=== PATIENT | female | born 1950 | race Two or more races ===

== ENCOUNTER 2020-12-06 18:51 | Emergency (ER) | payer MEDICARE, OTHER ==
[~2020-12-06] VITALS: Ht 165.1 cm; Wt 64.9 kg
[2020-12-06 20:05] LABS: Basophils # (auto) 0 10 ^3/uL (0-0.2); Basophils % (auto) 0.5 % (0.0-2.0); Eosinophils # (auto) 0 10 ^3/uL (0-0.8); Eosinophils % (auto) 0.5 % (0.0-7.0); Hematocrit 37.9 % (36.0-46.0); Hemoglobin 13.2 g/dL (12.2-16.2); Lymphocytes # (auto) 1.7 10 ^3/uL (0.4-5.4); Lymphocytes % (auto) 22.9 % (10.0-50.0); Mean Corpuscular Hemoglobin 31.2 pg (28.0-32.0); Mean Corpuscular Volume 89.4 fL (80.0-100.0); Monocytes # (auto) 0.4 10 ^3/uL (0-1.3); Monocytes % (auto) 5.2 % (0.0-12.0); Neutrophils # (auto) 5.2 10 ^3/uL (1.6-8.6); Neutrophils % (auto) 70.9 % (37.0-80.0); Nucleated Red Blood Cells % 1.2 %; Platelet Count (auto) 169 10^3/uL (140-450); Red Blood Cells 4.24 10^6/uL (4.0-5.20); Red Cell Distribution Width 13.9 % (11.8-14.3); White Blood Cell 7.3 10^3/uL (4.4-10.8)
[2020-12-06 20:23] LABS: Albumin 3.8 g/dL (3.4-5.0); Calcium 8.2 mg/dL (8.5-10.1); Potassium 3.2 mmol/L (3.5-5.1)
[2020-12-06 20:27] LABS: BUN/Creatinine Ratio 14.3; Bilirubin, Total 0.5 mg/dL (0.2-1.0); Total Protein 6.7 g/dL (6.4-8.2)
[2020-12-06] MEDS ORDERED: LORazepam 2MG/ML-1ML VIAL IV ONE (21:15)
[2020-12-06 23:00] VITALS: BP 144/69
[2020-12-06 23:01] LABS: Urine Bacteria FEW /hpf (None Seen); Urine Blood Negative /uL (Negative); Urine Specific Gravity 1.009 (1.001-1.035); Urine WBC 35 /hpf (0 - 5)
== END 2020-12-06 23:40 | disposition home or self-care (01) ==
LOC: EDBD 18:51 → ER 18:54
DX: R07.89 Other chest pain (principal); N39.0 Urinary tract infection, site not specified
CPT/HCPCS: 36415; 80053; 81001; 84484; 85025; 93005